=== PATIENT | female | born 2000 | race Caucasian/White ===

== ENCOUNTER 2023-02-25 09:36 | Outpatient (OUT) | payer BC, SELFPAY ==
--- NOTE | 2023-02-25 09:38 | US_ITS ---
[address] [address] Patient Name: MICHEAL DENNIS MRN: [id number] date: 2000 Sex: F Assigned Patient Location: US Current Patient Location: US Accession/Order Number: [id number] Exam Date: 02/25/2023 09:40 Report Date: 02/25/2023 10:41 At the request of: SHEMAR HANSON Procedure: US OB growth EXAMINATION: US OB growth HISTORY: SIZE INCONSISTENT WITH DATES COMPARISON: Ultrasound anatomy 12/01/2022 FINDINGS: Heart Rate: 124.0 bpm Number: 1.0 Position: CEPHALIC Amniotic Fluid Volume: 9.4 cm Maximum Vertical Pocket: 2.9 cm BIOMETRY: BPD: 7.5 cm cm; 30 weeks 0 days; less than 3% HC: 27.4 cmcm; 30 weeks 0 days; less than 3% AC: 28.3 cm cm; 32 weeks 2 days 35% FL: 6.5 cm cm; 33 weeks 4 days; 58.0 % EFW: 1932.5 grams; 23% FL/AC: 23.0 FL/BPD: 87.2 HC/AC: 1.0 GESTATIONAL AGE: Age by EDC: 32 weeks 6 days KODY by EDC: 04/16/2023 Age by US: 31 weeks 3 days KODY by US: 04/26/2023 IMPRESSION: 1. Single live intrauterine with growth detailed above. 2. BPD and HC are less than 3rd percentile. Electronically authenticated by: OSORIO JEFFERSON Date: 02/25/2023 10:41
== END 2023-02-25 09:37 ==
LOC: US 09:36
PROVIDERS: Visit Provider Physician Assistant
DX: O26.843 Uterine size-date discrepancy, third trimester (principal); Z3A.30 30 weeks gestation of pregnancy
CPT/HCPCS: 76816

== ENCOUNTER 2023-03-23 21:59 | Outpatient (REF) | payer BC, SELFPAY | END 2023-03-23 22:00 | disposition home or self-care (01) | LOC: LAB 21:59 | PROVIDERS: Visit Provider Obstetrics & Gynecology | DX: Z34.93 Encounter for supervision of normal pregnancy, unspecified, third trimester (principal) | CPT/HCPCS: 87081 ==

== ENCOUNTER 2023-04-06 12:18 | Outpatient (OUT) | payer BC, SELFPAY ==
--- NOTE | 2023-04-06 12:30 | US_ITS ---
[address] [address] Patient Name: MICHEAL DENNIS MRN: [id number] date: 2000 Sex: F Assigned Patient Location: [facility] Current Patient Location: [facility] [place] Accession/Order Number: [id number] Exam Date: 04/06/2023 13:20 Report Date: 04/06/2023 15:25 At the request of: AARON ALBRIGHT Procedure: US OB BPP w non-stress EXAMINATION: US OB BPP w non-stress HISTORY: size less than dates COMPARISON: Ultrasound OB growth 02/25/2023 TECHNIQUE: Ultrasound biophysical profile was performed in the radiology department. BREATHING MOVEMENTS: 2.0 GROSS BODY MOVEMENTS: 2.0 TONE: 2.0 QUALITATIVE AMNIOTIC FLUID VOLUME: 2.0 PRESENTATION: CEPHALIC HEART RATE: 129.8 bpm bpm. AMNIOTIC FLUID VOLUME: 13.0 cm GESTATIONAL AGE: 38 weeks 4 days CONCLUSION: Total biophysical profile score 8.0. Electronically authenticated by: OSORIO JEFFERSON Date: 04/06/2023 15:25
--- NOTE | 2023-04-06 12:37 | US_ITS ---
[address] [address] Patient Name: MICHEAL DENNIS MRN: [id number] date: 2000 Sex: F Assigned Patient Location: [facility] [place] [facility] [place]Order Number: [id number] Exam Date: 04/06/2023 13:20 Report Date: 04/06/2023 16:04 At the request of: AARON ALBRIGHT Procedure: US OB growth EXAMINATION: US OB growth HISTORY: small for gestational age fetus COMPARISON: No relevant comparison available. FINDINGS: Heart Rate: 129.8 bpm Number: 1.0 Position: CEPHALIC Amniotic Fluid Volume: 13.0 cm Maximum Vertical Pocket: 4.5 cm BIOMETRY: BPD: 8.5 cm cm; 34 weeks 1 days; <3% HC: 30.3 cmcm; 33 weeks 5 days; <3% AC: 32.1 cm cm; 36 weeks 0 days; 8% FL: 7.4 cm cm; 37 weeks 6 days; 39% EFW: 2825.3 grams; 11% FL/AC: 23.1 FL/BPD: 87.3 HC/AC: 0.9 GESTATIONAL AGE: Age by EDC: 38 weeks 4 days KODY by EDC: 04/16/2023 Age by US: 35 weeks 3 days KODY by US: 05/08/2023 US/US OB growth IMPRESSION: 1. Single live intrauterine with growth detailed above. 2. BPD and HC are less than 3rd percentile. Electronically authenticated by: OSORIO JEFFERSON Date: 04/06/2023 16:04
[2023-04-06 12:42] VITALS: BP 126/79; PULSE 69
== END 2023-04-06 14:00 | disposition home or self-care (01) ==
LOC: FBCO 12:20 → FBC 12:21
PROVIDERS: Visit Provider Obstetrics & Gynecology
DX: O36.5930 Maternal care for other known or suspected poor fetal growth, third trimester, not applicable or unspecified (principal); Z3A.38 38 weeks gestation of pregnancy
CPT/HCPCS: 76816; 76818

== ENCOUNTER 2023-04-14 05:11 | Inpatient (IN) | payer BC, SELFPAY ==
[2023-04-14] VITALS (42 sets, daily range): BP systolic 106–155; BP diastolic 59–91; PULSE 56–77; RESP 14–16; TEMP 36.6–37.1
[2023-04-14 05:54] LABS: Mean Corpuscular HGB Conc 32.4 g/dL (29.9-35.2); Mean Corpuscular Hemoglobin 26.8 pg (26.7-34.0); Mean Corpuscular Volume 82.9 fL (81.0-99.0); Mean Platelet Volume 12.1 fL (9.5-13.5); Platelet Count 294 10^3/uL (150-450); Red Cell Distribution Width 14.6 % (11.0-15.0); White Blood Count 11.4 10^3/uL (4.0-11.0)
[2023-04-14 05:56] LABS: Amphetamine Screen Urine NEGATIVE (NEGATIVE); Barbiturates Screen Urine NEGATIVE (NEGATIVE); Benzodiazepines Screen Urine NEGATIVE (NEGATIVE); Buprenorphine Screen Urine NEGATIVE (NEGATIVE); Cannabinoid Screen Urine NEGATIVE (NEGATIVE); Cocaine Screen Urine NEGATIVE (NEGATIVE); Methadone Screen Urine NEGATIVE (NEGATIVE); Methamphetamines Screen Urine NEGATIVE (NEGATIVE); Opiate Screen Urine NEGATIVE (NEGATIVE); Oxycodone Screen Urine NEGATIVE (NEGATIVE); Phencyclidine Screen Urine NEGATIVE (NEGATIVE); Tricyclic Antidepressant Urine NEGATIVE (NEGATIVE)
[2023-04-14] MEDS: 0.9 % SODIUM CHLORIDE 1,000 ML 125 ML IV (06:40)
[2023-04-14] MEDS: OXYTOCIN 10 UNIT in 0.9 % SODIUM CHLORIDE 500 ML 6.012 UNIT IV (07:27)
--- NOTE | 2023-04-14 07:35 | W.PC.ACHO ---
Registration Status: ADM IN Primary Language: Lebanese Preferred Language: Lebanese Active Medications Generic Name Dose Route Start Last Admin Trade Name Josie PRN Reason Stop Dose Admin Carboprost Tromethamine 250 mcg 04/14/23 05:13 Carboprost Tromethamine 250 Mcg/Ml 1 Ml Vial IM Q15M PRN Bleeding Sodium Chloride 1,000 mls @ 125 mls/hr 04/14/23 05:15 04/14/23 06:40 Sodium Chloride 0.9% 1,000 Ml IV 125 mls/hr .Q8H BELL Administration Oxytocin 10 unit/ Sodium 501 mls @ 6.012 mls/hr 04/14/23 05:15 04/14/23 07:27 Chloride IV 2 milliunit/min Q24H BELL 6.012 mls/hr Administration 2 MILLIUNIT/MIN Oxytocin 20 unit/ Sodium 1,002 mls @ 125 mls/hr 04/14/23 05:30 Chloride IV 04/14/23 13:29 Q8H PRN delivery Protocol Lidocaine 5 ml 04/14/23 05:13 Lidocaine Viscous 2% 15 Ml Topical Solution TOPICAL DIRECTED PRN Pain Lidocaine 1 ml 04/14/23 05:13 Lidocaine Hcl 1% 200 Mg/20 Ml Mdv INJ DIRECTED PRN Pain Methylergonovine Maleate 0.2 mg 04/14/23 05:13 Methylergonovine Maleate 0.2 Mg Tablet PO Q4H PRN Uterine Contractility/Contract Methylergonovine Maleate 0.2 mg 04/14/23 05:13 Methylergonovine Maleate 0.2 Mg/Ml Ampule IM ONCE PRN Uterine Contractility/Contract Misoprostol 600 mcg 04/14/23 05:13 Misoprostol 100 Mcg Tablet PO ONCE PRN Uterine Bleeding Misoprostol 800 mcg 04/14/23 05:13 Misoprostol 100 Mcg Tablet SL ONCE PRN Uterine Bleeding Misoprostol 1,000 mcg 04/14/23 05:13 Misoprostol 100 Mcg Tablet TN ONCE PRN Uterine Bleeding Ondansetron HCl 4 mg 04/14/23 05:13 Ondansetron Pf 4 Mg/2 Ml Vial IV Q6H PRN Nausea And Vomiting Ondansetron HCl 4 mg 04/14/23 05:13 Ondansetron 4 Mg Rapdis Tablet SL Q6H PRN Nausea And Vomiting Oxytocin 10 unit 04/14/23 05:13 Oxytocin 100 Unit/10 Ml Vial IM ONCE PRN Uterine Bleeding Diet Category Date Time Status Clear Liquid Diet Diet 04/14/23 Breakfast Active Consults Category Date Time Status Consult to Anesthesiology Routine Cons 04/14/23 Ordered IV Insertion/Site Date of IV Line Insertion [20g 04/14/23 right Hand] IV Insertion Time [20g right 05:33 Hand] Neurology Patient orientation (short person,place,time,situation list)
--- NOTE | 2023-04-14 15:50 | PM.OBPRCVD ---
Procedure Intrapartal events: None Induction method: per pitocin protocol Delivery augmentation: pitocin Delivery monitor: external FHT and external uterine Route of delivery: Episiotomy Description: none Laceration description: perineal - 1st degree Delivery repair: Vicryl Estimated blood loss (mL): 575 Anesthesia type: Epidural Disposition: PACU Delivery date: 04/14/23 Gender: female presentation: vertex Placental delivery description: Spontaneous and Normal Configuration cord description: 3 Vessels
--- NOTE | 2023-04-14 17:05 | PC.NURSE ---
skin to skin with infant. no s/s of distress noted
--- NOTE | 2023-04-14 17:25 | PC.NURSE ---
infant cont to nurse activley. Scant bleeding noted. denies pain. resp easy
--- NOTE | 2023-04-14 18:31 | NUTR.NU ---
remains at [facility] nursing. pt denies pain or needs at this time
--- NOTE | 2023-04-14 18:50 | PC.NURSE ---
infant at breast, pt eats supper . denies pain or needs
[2023-04-14] MEDS: IBUPROFEN 600 MG TABLET PO (23:38)
[2023-04-15] MEDS: IBUPROFEN 600 MG TABLET PO ×2 (06:09→18:38)
[2023-04-15 06:15] LABS: Basophils Percent Auto 0.2 % (0.2-2.0); Eosinophils Percent Auto 0.1 % (0.9-7.0); Hematocrit 30.5 % (36.0-48.0); Hemoglobin 9.6 g/dL (12.0-16.0); Immature Granulocytes Abs Auto 0.12 10^3/uL (0.00-0.03); Immature Granulocytes Pct Auto 0.7 % (0.0-0.5); Lymphocytes Absolute Auto 2.5 10^3/uL (1.2-3.8); Lymphocytes Percent Auto 14.1 % (20.5-60.0); Mean Corpuscular HGB Conc 31.5 g/dL (29.9-35.2); Mean Corpuscular Hemoglobin 26.4 pg (26.7-34.0); Mean Platelet Volume 10.7 fL (9.5-13.5); Monocytes Absolute Auto 1.2 10^3/uL (0.3-0.8); Monocytes Percent Auto 6.7 % (1.7-12.0); Neutrophils Absolute Auto 13.6 10^3/uL (1.4-6.5); Neutrophils Percent Auto 78.2 % (43.0-75.0); Platelet Count 228 10^3/uL (150-450); Red Blood Count 3.63 10^6/uL (4.20-5.40); Red Cell Distribution Width 14.6 % (11.0-15.0); White Blood Count 17.4 10^3/uL (4.0-11.0)
[2023-04-15 08:42] VITALS: BP 134/73; PULSE 73
--- NOTE | 2023-04-15 08:48 | PM.OBPN ---
OB - PN: Subj Subjective Patient comments: no complaints [place] status: doing well Exam Constitutional Vital Signs, click to edit/add: Last Vital Signs Temp 98.5 F 04/14/23 23:35 Pulse 73 04/15/23 08:42 Resp 14 04/14/23 23:35 BP 134/73 04/15/23 08:42 O2 Del Method Room Air 04/14/23 23:35 Documenting provider has reviewed patient's vital signs: yes Common normals: no apparent distress General appearance: cooperative and comfortable HENMT Common normals: normocephalic Lymph Lymphatic: no lymphadenopathy noted Chest Common normals: inspection of chest normal Respiratory Common normals: normal respiratory effort Cardio Common normals: no JVD, regular rate and regular rhythm Rate: regular rate Rhythm: regular rhythm GI Common normals: Normal to inspection, nondistended, normoactive bowel sounds present Inspection: normal to inspection Palpation: soft Common normals: no CVA tenderness Back & Pelvis Common normals: no CVA tenderness Extremity Common normals: normal to inspection Neuro Common normals: oriented x3 Sensorium/orientation: awake, alert, oriented to person, oriented to place and oriented to time Psych Common normals: mental status grossly normal Attitude: calm Results Labs Labs: Short CBC 04/15/23 Range/Units 06:09 WBC 17.4 H (4.0-11.0) 10^3/uL Hgb 9.6 L (12.0-16.0) g/dL Hct 30.5 L (36.0-48.0) % Plt Count 228 (150-450) 10^3/uL OB - PN: A/P Plan - Vaginal Delivery day: 1 Time Spent with Patient Time: Total time spent is greater than 50% in coordination of care (as documented) at patient's floor/unit and/or counseling patient: Total time spent with greater than 50% in coordination of care (as documented) at patient's floor/unit and/or counseling patient: less than 15 minutes
[2023-04-15] MEDS: DOCUSATE SODIUM 100 MG CAPSULE PO ×2 (08:54→21:27)
[2023-04-15] MEDS: FERROUS SULFATE 325 MG TABLET PO ×2 (08:57→21:28)
[2023-04-15 09:00] VITALS: BP 134/73; PULSE 73; RESP 13; TEMP 37.1
--- NOTE | 2023-04-15 11:54 | PC.NURSE ---
Given handouts with explanation and discussion. Shown positioning fo r
--- NOTE | 2023-04-15 11:55 | PC.NURSE ---
Given handouts with discussion demo. Positions and best position for deep latch. Left nipple noted to have compression stripe with blisters. Discussed reason for damage and ways to care for nipples and best latch. Infant unsettled at breast as chin is down on chest. Shown side lying position. Deep latch, infant relaxed and calm, mom relaxed and comfortable. Support given, family in room and supportive.
[2023-04-15 16:16] VITALS: BP 129/74; PULSE 58
[2023-04-15 16:35] VITALS: TEMP 36.7
--- NOTE | 2023-04-15 19:09 | W.PC.ACHO ---
Registration Status: ADM IN Primary Language: Japanese Preferred Language: Japanese Active Medications Generic Name Dose Route Start Last Admin Trade Name Freq PRN Reason Stop Dose Admin Acetaminophen 650 mg 04/14/23 15:52 Acetaminophen 325 Mg Tablet PO Q6H PRN Mild Pain Al Hydroxide/Mg Hydroxide 2,400 mg 04/14/23 15:52 Magnesium Hydroxide 2,400 Mg/10 Ml Oral.Susp PO Q6H PRN Dyspepsia Benzocaine/Menthol 1 applic 04/14/23 16:00 04/15/23 09:00 Benzocaine/Menthol 85 Gram Bottle TOPICAL 1 applic ONCE PRN Administration Pain Docusate Sodium 100 mg 04/15/23 09:00 04/15/23 08:54 Docusate Sodium 100 Mg Capsule PO 100 mg BID BELL Administration Ferrous Sulfate 325 mg 04/15/23 09:00 04/15/23 08:57 Ferrous Sulfate 325 Mg Tablet PO 325 mg BID BELL Administration Sodium Chloride 1,000 mls @ 125 mls/hr 04/14/23 05:15 04/14/23 11:00 Sodium Chloride 0.9% 1,000 Ml IV Infused .Q8H BELL Infusion Ibuprofen 600 mg 04/14/23 15:52 04/15/23 18:38 Ibuprofen 600 Mg Tablet PO 600 mg Q6H PRN Administration Moderate Pain Ondansetron HCl 4 mg 04/14/23 05:13 Ondansetron Pf 4 Mg/2 Ml Vial IV Q6H PRN Nausea And Vomiting Ondansetron HCl 4 mg 04/14/23 05:13 Ondansetron 4 Mg Rapdis Tablet SL Q6H PRN Nausea And Vomiting Senna 17.2 mg 04/14/23 20:00 Sennosides 8.6 Mg Tablet PO QHS PRN Constipation Simethicone 80 mg 04/14/23 15:52 Simethicone 80 Mg Tab.Chew PO QID PRN Abdominal Distention Temazepam 15 mg 04/14/23 20:00 Temazepam 15 Mg Capsule PO BEDTIME PRN Sleep Witch Cindy/Glycerin 1 each 04/14/23 16:00 04/15/23 09:01 Glycerin/Witch Cindy 1 Each Jar TOPICAL 1 each ONCE PRN Administration Pain Respiratory Lung sounds [Bilateral clear Throughout] Lung sounds [Bilateral clear Throughout] Lung sounds [Bilateral clear Throughout] Lung sounds [Bilateral clear Throughout] Oxygen Delivery Method Room Air Oxygen Delivery Method Room Air Oxygen Delivery Method Room Air Oxygen Delivery Method Room Air Cardiology Heart Sounds Strong,Regular Heart Sounds Strong,Regular Bowels Bowel Pattern No Bowel Movement Bowel Pattern No Bowel Movement Bowel Pattern No Bowel Movement Bowel Pattern No Bowel Movement Renal Bladder Pattern Continent Bladder Pattern Due to Void
[2023-04-16 00:20] VITALS: BP 122/78; PULSE 67; TEMP 36.8
[2023-04-16] MEDS: IBUPROFEN 600 MG TABLET PO (01:09)
--- NOTE | 2023-04-16 07:24 | W.PC.ACHO ---
Registration Status: ADM IN Primary Language: [place] Preferred Language: [place] Active Medications Generic Name Dose Route Start Last Admin Trade Name Freq PRN Reason Stop Dose Admin Acetaminophen 650 mg 04/14/23 15:52 Acetaminophen 325 Mg Tablet PO Q6H PRN Mild Pain Al Hydroxide/Mg Hydroxide 2,400 mg 04/14/23 15:52 Magnesium Hydroxide 2,400 Mg/10 Ml Oral.Susp PO Q6H PRN Dyspepsia Benzocaine/Menthol 1 applic 04/14/23 16:00 04/15/23 09:00 Benzocaine/Menthol 85 Gram Bottle TOPICAL 1 applic ONCE PRN Administration Pain Docusate Sodium 100 mg 04/15/23 09:00 04/15/23 21:27 Docusate Sodium 100 Mg Capsule PO 100 mg BID BELL Administration Ferrous Sulfate 325 mg 04/15/23 09:00 04/15/23 21:28 Ferrous Sulfate 325 Mg Tablet PO 325 mg BID BELL Administration Sodium Chloride 1,000 mls @ 125 mls/hr 04/14/23 05:15 04/14/23 11:00 Sodium Chloride 0.9% 1,000 Ml IV Infused .Q8H BELL Infusion Ibuprofen 600 mg 04/14/23 15:52 04/16/23 01:09 Ibuprofen 600 Mg Tablet PO 600 mg Q6H PRN Administration Moderate Pain Ondansetron HCl 4 mg 04/14/23 05:13 Ondansetron Pf 4 Mg/2 Ml Vial IV Q6H PRN Nausea And Vomiting Ondansetron HCl 4 mg 04/14/23 05:13 Ondansetron 4 Mg Rapdis Tablet SL Q6H PRN Nausea And Vomiting Senna 17.2 mg 04/14/23 20:00 Sennosides 8.6 Mg Tablet PO QHS PRN Constipation Simethicone 80 mg 04/14/23 15:52 Simethicone 80 Mg Tab.Chew PO QID PRN Abdominal Distention Temazepam 15 mg 04/14/23 20:00 Temazepam 15 Mg Capsule PO BEDTIME PRN Sleep Witch Cindy/Glycerin 1 each 04/14/23 16:00 04/15/23 09:01 Glycerin/Witch Cindy 1 Each Jar TOPICAL 1 each ONCE PRN Administration Pain Respiratory Lung sounds [Bilateral clear Throughout] Lung sounds [Bilateral clear Throughout] Lung sounds [Bilateral clear Throughout] Bowels Bowel Pattern No Bowel Movement Bowel Pattern No Bowel Movement
[2023-04-16 08:41] VITALS: BP 122/81; PULSE 66
[2023-04-16 08:56] VITALS: RESP 16; TEMP 36.6
--- NOTE | 2023-04-16 10:01 | P.OBPN_ITS ---
OB - PN: Subj Subjective Patient comments: no complaints [place] status: doing well Exam Constitutional Vital Signs, click to edit/add: Last Vital Signs Temp 97.9 F 04/16/23 08:56 Pulse 66 04/16/23 08:41 Resp 16 04/16/23 08:56 BP 122/81 04/16/23 08:41 O2 Del Method Room Air 04/14/23 23:35 Documenting provider has reviewed patient's vital signs: yes Common normals: no apparent distress Respiratory Common normals: normal respiratory effort and clear to auscultation bilaterally Cardio Common normals: regular rate and regular rhythm GI Common normals: Normal to inspection, nondistended, normoactive bowel sounds present Extremity Common normals: no clubbing, cyanosis or edema and no calf tenderness OB - PN: A/P Plan - Vaginal Delivery day: 2 Plan: routine care, discharge home and follow up 6 weeks Time Spent with Patient Time: Total time spent is greater than 50% in coordination of care (as documented) at patient's floor/unit and/or counseling patient: Total time spent with greater than 50% in coordination of care (as documented) at patient's floor/unit and/or counseling patient: less than 15 minutes
--- NOTE | 2023-04-16 14:03 | SWNOTE1 ---
SW consulted due to history of drug use. Pt and father of baby in room. SW addressed THC use during . Pt was positive at first OB visit and that was it. She did voice she does not smoke anymore and does not plan to use once home. They do have everything the need at home for baby. They both voiced good support system, it is first grand child on both sides of family. Pt also had history of suicidal thoughts. She did voice being a little blue during , but also voiced she trust father of baby and he is her big support. SW advised to call her PCP if she starts to feel really down. Pt voiced understanding. Pt and father of baby appropriate with baby and no concerns. Cord was not sent. No referral to CPS at this time. SW updated nursing.
== END 2023-04-16 13:16 | disposition home or self-care (01) | DRG 807 ==
PROVIDERS: Admitting Provider Obstetrics & Gynecology; Visit Provider Obstetrics & Gynecology
DX: O70.0 First degree perineal laceration during delivery (principal); Z37.0 Single live birth; Z3A.39 39 weeks gestation of pregnancy; Z86.2 Personal history of diseases of the blood and blood-forming organs and certain disorders involving the immune mechanism; Z79.899 Other long term (current) drug therapy
CPT/HCPCS: 36415; 59050; 59410; 80307; 85025; 85027; 86850; 86900; 86901; 96365; 96366; 96376

== ENCOUNTER 2023-04-20 08:33 | Outpatient (RCR) | payer BC, SELFPAY ==
[2023-04-20 14:13] VITALS: BP 136/84; PULSE 71; RESP 18; TEMP 36.9
--- NOTE | 2023-04-20 14:22 | PC.NURSE ---
Mom and baby doing well at follow up visit. Infant gaining well, mom independently latches baby with minimal reminders. Aware of deep latch and shallow latch discomfort. States baby usually nurses both breasts at a feed and occasionally only one. Mom requests breastpump papers to be completed as thought she had one but batteries do not hold charge. (given to here by a friend) Request sent to [facility] with copy of DL and ins card. Copy sent with mom. Aware of MOMS BF support group and to call as needed for support.
== END 2023-04-20 14:05 | disposition home or self-care (01) ==
LOC: FBCO 08:33
PROVIDERS: Visit Provider Obstetrics & Gynecology
DX: Z39.1 Encounter for care and examination of lactating mother (principal)